=== PATIENT | female | born 1985 | race Caucasian/White ===

== ENCOUNTER 2016-05-29 13:01 | Outpatient (CLI) | payer OTHER ==
[2016-05-29 13:56] LABS: Appearance,Urine Clear (Clear); Bilirubin,Urine Negative (Negative); Glucose,Urine (UA) Negative (Negative); Ketones,Urine Negative (Negative); Leukocyte Esterase,Urine Negative (Negative); Nitrite,Urine Negative (Negative); PH, Urine 6.5 (5.0-8.0); Protein,Urine Negative (Negative); Specific Gravity,Urine 1.002 (1.001-1.035); UA Billing (MACRO vs. MICRO) CHEM; Urobilinogen,Urine <2.0 mg/dL (<2.0)
[2016-05-29 14:22] LABS: Basophils % (A) 0 %; CH 32.3; Eosinophils # (A) 0.1 k/uL (0-0.7); Eosinophils % (A) 1 %; HCT 36.5 % (34.0-46.0); HDW 2.49; HGB 11.9 gm/dL (11.4-16.0); Luc # (Auto) 0.11; Luc % (Auto) 1; Lymphocytes # (A) 1.3 k/uL (1.0-4.8); Lymphocytes % (A) 15 %; MCH 31.1 pg (25.0-35.0); MCHC 32.6 g/dL (31.0-37.0); MCV 95.4 fL (80.0-100.0); Mean Platelet Volume 7.6; Monocytes # (A) 0.3 k/uL (0-1.0); Monocytes % (A) 3 %; Neutrophils # (A) 6.9 k/uL (1.3-7.7); Neutrophils % (A) 80 %; RBC 3.83 m/uL (3.80-5.40); RDW 13.2 % (11.5-15.5); WBC 8.7 k/uL (3.8-10.6); WBC (Perox) 8.73
[2016-05-29 14:44] LABS: ALT 32 U/L (9-52); AST 49 U/L (14-36); LDH 398 U/L (313-618); Non-African American GFR(MDRD) >60 (>60 ml/min/1.73 sqM); Uric Acid 3.5 mg/dL (3.7-7.4)
== END 2016-05-29 15:20 | disposition home or self-care (01) ==
LOC: FBPOP 13:01
PROVIDERS: ATTEND Obstetrics & Gynecology
DX: O99.89 Other specified diseases and conditions complicating pregnancy, childbirth and the puerperium (principal); R03.0 Elevated blood-pressure reading, without diagnosis of hypertension; Z3A.23 23 weeks gestation of pregnancy
CPT/HCPCS: 81003; 82565; 83615; 84450; 84460; 84550; 85025; 99215

== ENCOUNTER → 2016-06-27 | Outpatient (CLI) | payer OTHER ==
[2016-06-27 09:43] LABS: CH 32.5; CHCM 34.2; HCT 38.2 % (34.0-46.0); HDW 2.63; HGB 12.8 gm/dL (11.4-16.0); MCH 32.1 pg (25.0-35.0); MCHC 33.6 g/dL (31.0-37.0); MCV 95.5 fL (80.0-100.0); Mean Platelet Volume 7.6; RDW 12.9 % (11.5-15.5); WBC 9.9 k/uL (3.8-10.6)
== END | disposition home or self-care (01) ==
LOC: LABWHC1 08:01 → EDSTATUS 09:19
PROVIDERS: ATTEND Obstetrics & Gynecology
DX: Z34.02 Encounter for supervision of normal first pregnancy, second trimester (principal); Z3A.00 Weeks of gestation of pregnancy not specified
CPT/HCPCS: 36415; 82950; 85027; 86850

== ENCOUNTER 2016-09-23 01:17 | Inpatient (IN) | payer OTHER ==
[2016-09-23] MEDS ORDERED: OXYTOCIN 10 UNIT/ML 1 ML VIAL IM PRN (01:35)
[2016-09-23] MEDS ORDERED: CARBOPROST TROMETHAMINE 250 MCG/ML 1 ML AMP IM PRN (01:35)
[2016-09-23] MEDS ORDERED: METHYLERGONOVINE 0.2 MG/ML 1 ML AMP IM PRN (01:35)
[2016-09-23] MEDS ORDERED: TERBUTALINE 1 MG/ML VIAL SQ PRN (01:35)
[2016-09-23] MEDS ORDERED: LIDOCAINE 1% (PF) 10 MG/ML (30 ML SDV) SQ PRN (01:35)
[2016-09-23] MEDS ORDERED: BUTORPHANOL 1 MG/ML 1 ML VIAL IV PRN (01:36)
[2016-09-23] MEDS: LACTATED RINGERS 1,000 ML IV SCH ×2 (02:02→08:26)
[2016-09-23] MEDS: OXYTOCIN 20 UNITS/1000 ML NS 1,000 ML IV SCH ×2 (02:16→12:41)
[2016-09-23 03:23] LABS: Basophils % (A) 0 %; CH 31.9; CHCM 35.7; Eosinophils # (A) 0.1 k/uL (0-0.7); Eosinophils % (A) 1 %; HCT 38.4 % (34.0-46.0); HGB 13.6 gm/dL (11.4-16.0); Luc # (Auto) 0.15; Luc % (Auto) 2; Lymphocytes # (A) 1.7 k/uL (1.0-4.8); Lymphocytes % (A) 17 %; MCH 31.7 pg (25.0-35.0); MCHC 35.4 g/dL (31.0-37.0); MCV 89.7 fL (80.0-100.0); Mean Platelet Volume 7.8; Monocytes # (A) 0.5 k/uL (0-1.0); Monocytes % (A) 5 %; Neutrophils # (A) 7.6 k/uL (1.3-7.7); Neutrophils % (A) 76 %; RBC 4.28 m/uL (3.80-5.40); WBC 10.1 k/uL (3.8-10.6); WBC (Perox) 10.38
--- NOTE | 2016-09-23 08:30 | P.HPOB ---
History of Present Illness H&P Date: 09/23/16 Chief Complaint: Spontaneous rupture of membranes 30-year-old presents at 39 weeks and 6 days with spontaneous rupture membranes at midnight. Her cervix is 2 cm dilated, 70% effaced, -2 station. She is yara irregularly. heart tones 140-145 with moderate variability and reactive. Review of Systems All systems: negative Constitutional: Denies chills, Denies fever Eyes: denies blurred vision, denies pain Ears, nose, mouth and throat: Denies headache, Denies sore throat Cardiovascular: Denies chest pain, Denies shortness of breath Respiratory: Denies cough Gastrointestinal: Denies abdominal pain, Denies diarrhea, Denies nausea, Denies vomiting Genitourinary: Denies dysuria, Denies hematuria Musculoskeletal: Denies myalgias Integumentary: Denies pruritus, Denies rash Neurological: Denies numbness, Denies weakness Psychiatric: Denies anxiety, Denies depression Endocrine: Denies fatigue, Denies weight change Past Medical History Past Medical History: Thyroid Disorder Additional Past Medical History / Comment(s): thyroiditis - 2015. Obstetric history: This is her first she had care with me since 10 weeks. Blood type O-, antibodies negative, rubella immune, RPR nonreactive, hepatitis B negative, GBS negative. History of Any Multi-Drug Resistant Organisms: None Reported Past Surgical History: Cholecystectomy Additional Past Surgical History / Comment(s): 2006 Past Anesthesia/Blood Transfusion Reactions: No Reported Reaction Past Psychological History: Depression Smoking Status: Never smoker Past Alcohol Use History: None Reported Past Drug Use History: None Reported - Past Family History Father Family Medical History: Diabetes Mellitus, Hypertension Sister(s) Family Medical History: Diabetes Mellitus Additional Family Medical History / Comment(s): tuberous sclerosis Medications and Allergies Home Medications Medication Instructions Recorded Confirmed Type Ykx-Plws-Zcbgi Acid 1 cap PO DAILY 05/29/16 09/23/16 History [-U Capsule] Ranitidine HCl [Zantac] 150 mg PO DAILY 09/23/16 09/23/16 History Allergies Allergy/AdvReac Type Severity Reaction Status Date / Time amoxicillin [From Augmentin] Allergy Rash/Hives Verified 09/23/16 01:23 clavulanic acid Allergy Rash/Hives Verified 09/23/16 01:23 [From Augmentin] Exam Osteopathic Statement: *. No significant issues noted on an osteopathic structural exam other than those noted in the History and Physical/Consult. - Vital Signs Vital signs: Vital Signs Temp Pulse Resp BP Pulse Ox 09/23/16 01:39 97.2 F L 94 16 131/84 98 09/23/16 01:24 97.2 F L 94 16 131/84 98 Intake and Output 09/22/16 09/23/16 09/23/16 22:59 06:59 14:59 Other: # Voids 2 Weight 113.398 kg Heart: Regular rate and rhythm Lungs: Clear to auscultation bilaterally Abdomen: Soft, nontender Extremities: Negative Homans sign Results Result Diagrams: 09/23/16 02:00 Assessment and Plan (1) Spontaneous rupture of membranes Status: Acute Plan: 1. Admit to family place 2. Pitocin augmentation 3. Anticipate normal vaginal delivery
[2016-09-23] MEDS ORDERED: HYDROCORTISONE 2.5% RECTAL CREAM 30 GM TUBE RECTAL PRN (10:22)
[2016-09-23] MEDS ORDERED: ACETAMINOPHEN TAB 325 MG TAB PO PRN (10:22)
[2016-09-23] MEDS ORDERED: diphenhydrAMINE 50 MG/ML 1 ML VIAL IVP PRN ×2 (10:22)
[2016-09-23] MEDS ORDERED: LANOLIN CREAM 5 GM TUBE TOPICAL PRN (10:22)
[2016-09-23] MEDS ORDERED: WITCH HAZEL 1 EACH MED..PAD TOPICAL PRN (10:22)
[2016-09-23] MEDS ORDERED: IBUPROFEN 600 MG TAB PO PRN (10:22)
[2016-09-23] MEDS ORDERED: ZOLPIDEM 5 MG TAB PO PRN (10:22)
[2016-09-23] MEDS ORDERED: diphenhydrAMINE 50 MG CAP PO PRN (10:22)
[2016-09-23] MEDS ORDERED: BENZOCAINE SPRAY 57GM TOPICAL PRN (10:22)
[2016-09-23] MEDS ORDERED: diphenhydrAMINE 25 MG CAP PO PRN (10:22)
[2016-09-23] MEDS ORDERED: SIMETHICONE 80 MG CHEWABLE PO PRN (10:22)
[2016-09-23] MEDS ORDERED: Acetaminophen-Codeine 300-30mg TAB PO PRN ×2 (10:22)
[2016-09-23] MEDS: SENNOSIDES-DOCUSATE SODIUM 1 EACH TAB PO SCH (21:38)
[2016-09-24] MEDS ORDERED: Rhogam IMMUNE GLOBULIN 1,500 UNIT/1 ML IM ONE (00:21)
--- NOTE | 2016-09-24 08:14 | P.PROBDLV ---
Vaginal Delivery Note - . Vaginal Delivery Note: 30-year-old presents at 39 weeks and 6 days with spontaneous rupture of membranes at midnight. Her cervix was 2-3 cm dilated, 70% effaced, -2 station. She is yara irregularly. heart tones 130-135 with moderate variability and reactive. Pitocin augmentation was started. She progressed slowly throughout the night and was completely dilated at 9:53 AM. She pushed, and delivered a viable female over midline episiotomy at 10:01 AM. Head delivered OA, anterior shoulder delivered gentle downward traction followed by posterior shoulder and rest of body. Nose and mouth bulb suctioned, cord clamped and cut, infant placed on mother's abdomen. Apgars 8, 9, weight 7 lbs. 4 oz. Placenta delivered spontaneously, intact with three-vessel cord at 10:06 AM. Vagina, cervix, perineum inspected. Bilateral sulcal tears, left labial tear and midline episiotomy were all repaired with 2-0, 3-0 Vicryl. estimated blood loss 200 mL. Mother and baby in stable condition.
[2016-09-24 08:23] VITALS: BP 114/68; PULSE 82; RESP 18; TEMP 97.9
--- NOTE | 2016-09-24 08:48 | P.DS ---
Providers Date of admission: 09/23/16 01:36 Expected date of discharge: 09/24/16 Attending physician: Chanda Stout Primary care physician: Stated None - Discharge Diagnosis(es) (1) Spontaneous rupture of membranes Current Visit: Yes Status: Resolved (2) Normal vaginal delivery Current Visit: Yes Status: Acute Hospital Course: Patient presented with spontaneous rupture membranes and underwent normal vaginal delivery. Her course was uncomplicated. She denies nausea, vomiting, chest pain, shortness of breath, chest pain, or calf pain. She'll be discharged home post day #1 in stable condition to follow-up with me in 6 weeks. Plan - Discharge Summary New Discharge Prescriptions: No Action Oel-Zojs-Atyuw Acid [-U Capsule] 1 cap PO DAILY Ranitidine HCl [Zantac] 150 mg PO DAILY Discharge Medication List Hyz-Lpew-Xsrcb Acid [-U Capsule] 1 cap PO DAILY 05/29/16 [ History] Ranitidine HCl [Zantac] 150 mg PO DAILY 09/23/16 [History] Follow up Appointment(s)/Referral(s): Chanda Stout DO [Doctor of Osteopathic Medicine] - 6 Weeks Discharge Disposition: HOME SELF-CARE
[2016-09-24] MEDS: SENNOSIDES-DOCUSATE SODIUM 1 EACH TAB PO SCH (13:38)
--- NOTE | 2016-09-25 06:41 | P.MSEPDOC ---
Presenting Problems - Arrival Data Date of Arrival on Unit: 09/23/16 Time of Arrival on Unit: 01:28 Mode of Transport: Wheelchair - Complaint OB-Reason for Admission/Chief Complaint: Possible Onset of Labor, Rule Out SROM Medical History - Information : 1 Para: 0 Term: 0 : 0 Abortions: Spontaneous or Elective: 0 Number of Living Children: 0 - Gestational Age Expected Date of Delivery: 09/24/16 Gestational Age by BANDAR (wks/days): 40 Weeks and 1 Days Review of Systems - Review of Systems Constitutional: No problems Breast: No problems ENT: No problems Cardiovascular: No problems Respiratory: No problems Gastrointestinal: No problems Genitourinary: No problems Musculoskeletal: No problems Neurological: No problems Skin: No problems Vital Signs - Temperature Temperature: 97.9 F Temperature Source: Axillary - Pulse Right Pulse Rate: 82 Pulse Assessment Method: Auscultation - Respirations Respiratory Rate: 18 Oxygen Delivery Method: Room Air - Blood Pressure Right Arm Blood Pressure: 114/68 Blood Pressure Mean: 83 Blood Pressure Source: Automatic Cuff Medical Screen Scoring (Pre) - Cervical Exam Dilation: 1-3 cm = 1 Membranes: Ruptured = 3 - Uterine Contractions Frequency: > or = 36 weeks =2 Duration: > 40 seconds = 2 Intensity: N/A - Assessment Baseline FHR: 155 Heart Rate - NICHD Category: Category I (Normal) = 0 NST: Reactive Position: N/A Station: N/A - Total Score Total Score (Pre): 8 - Level of Risk Level of Risk: Medium (6-9) Physician Notification (Pre) - Physician Notified Physician Notified Date: 09/23/16 Physician Notified Time: 01:37 Spoke With: Girish Mir Order Received: Yes (admit for labor) Disposition - Disposition OB Disposition: Admit, LDRP Suite Discharge Date: 09/24/16 Discharge Time: 13:20 I agree with the RN Medical Screening Exam: Yes Risk & Benefit of care provided described in d/c instruction: Yes Diagnosis: ENCOUNTER FOR FULL-TERM UNCOMPLICATED DELIVERY
== END 2016-09-24 13:20 | disposition home or self-care (01) | DRG 775 ==
LOC: FBPOP 01:17 → 4FBP 01:36
PROVIDERS: ADMIT Obstetrics & Gynecology; ATTEND Obstetrics & Gynecology
PROC: 10E0XZZ Delivery of Products of Conception, External Approach (ICD-10-PCS; principal; 2016-09-23)
PROC: 0HQ9XZZ Repair Perineum Skin, External Approach (ICD-10-PCS; 2016-09-23)
PROC: 0W8NXZZ Division of Female Perineum, External Approach (ICD-10-PCS; 2016-09-23)
DX: O99.344 Other mental disorders complicating childbirth (principal); F32.9 Major depressive disorder, single episode, unspecified; Z37.0 Single live birth; O70.0 First degree perineal laceration during delivery; Z3A.39 39 weeks gestation of pregnancy; Z82.49 Family history of ischemic heart disease and other diseases of the circulatory system; Z88.1 Allergy status to other antibiotic agents
CPT/HCPCS: 59025; 84112; 85025; 88307; 99213

== ENCOUNTER → 2016-12-16 | Outpatient (CLI) | payer OTHER ==
--- NOTE | 2016-12-16 08:10 | US ---
EXAMINATION TYPE: US pelvis complete transvag DATE OF EXAM: 12/16/2016 COMPARISON: NONE CLINICAL HISTORY: Z997.[address] TECHNIQUE: Transvaginal (TV) and Transabdominal (TA) endovaginal scanning performed for better evalu ation of the uterus. Date of LMP: unknown EXAM MEASUREMENTS: Uterus: 8.7 x 3.9 x 4.8 cm Endometrial Stripe: 0.4 cm Right Ovary: 3.1 x 2.8 x 2.0 cm Left Ovary: 2.8 x 2.6 x 1.5 cm 1. Uterus: Anteverted wnl 2. Endometrium: no IUD seen 3. Right Ovary: wnl 4. Left Ovary: wnl 5. Bilateral Adnexa: wnl 6. Posterior cul-de-sac: trace free fluid IMPRESSION: IUD not seen
--- NOTE | 2016-12-16 12:14 | XR ---
EXAMINATION TYPE: XR KUB DATE OF EXAM: 12/16/2016 COMPARISON: 12/16/2016 HISTORY: Possible foreign body TECHNIQUE: One view abdominal series FINDINGS: The osseous structures are intact. The bowel gas pattern is nonspecific. There is a radiopaque forei gn body overlying the right paraspinal line at the approximate level of L3-L4. Arthropathy of the hips and calcifications in the pelvis noted. IMPRESSION: 1. Findings are suggestive of a foreign body overlying the L3-L4 space on the right. A [employer] message has been communicated to Chanda Stout DO via the [employer] system on 12/16/2016 12:11 PM, Message ID [id number].
--- NOTE | 2016-12-16 12:19 | XR ---
EXAMINATION TYPE: XR pelvis AP view DATE OF EXAM: 12/16/2016 COMPARISON: NONE HISTORY: Possible foreign body The osseous structures are intact and the joint spaces are preserved. No acute fracture is seen. Vi sualized bowel gas pattern is nonspecific. There is a radial opaque density overlying the L3-L4 level on the right which is suggestive of foreig n body and possibly intrauterine device. IMPRESSION: 1. Correlate for foreign body overlying the L3-L4 level.
== END | disposition home or self-care (01) ==
LOC: RADUSWWP 07:31
PROVIDERS: ATTEND Obstetrics & Gynecology
DX: T83.32XA Displacement of intrauterine contraceptive device, initial encounter (principal)
CPT/HCPCS: 72170; 74000; 76830; 76856

== ENCOUNTER → 2016-12-17 | Outpatient (CLI) | payer OTHER ==
[2016-12-17 11:43] LABS: Basophils % (A) 1 %; CH 29.5; CHCM 33.6; Eosinophils # (A) 0.1 k/uL (0-0.7); Eosinophils % (A) 2 %; HDW 2.77; HGB 13.3 gm/dL (11.4-16.0); Luc # (Auto) 0.13; Luc % (Auto) 3; Lymphocytes # (A) 1.6 k/uL (1.0-4.8); Lymphocytes % (A) 32 %; MCH 30.1 pg (25.0-35.0); MCHC 34.1 g/dL (31.0-37.0); MCV 88.1 fL (80.0-100.0); Mean Platelet Volume 6.4; Monocytes # (A) 0.2 k/uL (0-1.0); Monocytes % (A) 4 %; Neutrophils % (A) 59 %; RBC 4.43 m/uL (3.80-5.40); RDW 12.7 % (11.5-15.5); WBC 5.1 k/uL (3.8-10.6); WBC (Perox) 5.03
== END | disposition home or self-care (01) ==
LOC: LABPAT 10:05
PROVIDERS: ATTEND Obstetrics & Gynecology
DX: Z01.812 Encounter for preprocedural laboratory examination (principal)
CPT/HCPCS: 85025

== ENCOUNTER 2016-12-23 09:01 | Day surgery (SDC) | payer OTHER ==
[2016-12-17 18:16] VITALS: BMI 34.0
--- NOTE | 2016-12-22 17:17 | P.HPOB ---
History of Present Illness H&P Date: 12/22/16 Chief Complaint: Malpositioned IUD 30-year-old presents for laparoscopic removal of IUD. Review of Systems All systems: negative Constitutional: Denies chills, Denies fever Eyes: denies blurred vision, denies pain Ears, nose, mouth and throat: Denies headache, Denies sore throat Cardiovascular: Denies chest pain, Denies shortness of breath Respiratory: Denies cough Gastrointestinal: Denies abdominal pain, Denies diarrhea, Denies nausea, Denies vomiting Genitourinary: Denies dysuria, Denies hematuria Musculoskeletal: Denies myalgias Integumentary: Denies pruritus, Denies rash Neurological: Denies numbness, Denies weakness Psychiatric: Denies anxiety, Denies depression Endocrine: Denies fatigue, Denies weight change Past Medical History Past Medical History: GERD/Reflux, Thyroid Disorder Additional Past Medical History / Comment(s): Intrauterine Device,thyroiditis - 2015 History of Any Multi-Drug Resistant Organisms: None Reported Past Surgical History: Cholecystectomy Additional Past Surgical History / Comment(s): 2006 Past Anesthesia/Blood Transfusion Reactions: Postoperative Nausea & Vomiting ( PONV) Additional Past Anesthesia/Blood Transfusion Reaction / Comment(s): no hx blood transfusion Smoking Status: Never smoker - Past Family History Father Family Medical History: Diabetes Mellitus, Hypertension Sister(s) Family Medical History: Diabetes Mellitus Additional Family Medical History / Comment(s): tuberous sclerosis,3 sisters with diabetes Medications and Allergies Home Medications Medication Instructions Recorded Confirmed Type No Known Home Medications [No 12/17/16 12/17/16 History Known Home Medications] Allergies Allergy/AdvReac Type Severity Reaction Status Date / Time amoxicillin [From Augmentin] Allergy Rash/Hives Verified 12/17/16 18:11 clavulanic acid Allergy Rash/Hives Verified 12/17/16 18:11 [From Augmentin] Exam Osteopathic Statement: *. No significant issues noted on an osteopathic structural exam other than those noted in the History and Physical/Consult. Heart: Regular rate and rhythm Lungs: Clear to auscultation bilaterally Abdomen: Soft, nontender Extremities: Negative Homans sign Assessment and Plan (1) Complication of intrauterine device (IUD) Status: Acute Plan: 1. Laparoscopic removal of IUD
[~2016-12-23 09:01] MED LIST: DEXAMETHASONE SOD PHOSPHATE 10 MG/ML 1 ML VIAL IV ONE; HYDROmorphone 1 MG/ML 1 ML SYRINGE IVP PRN; LACTATED RINGERS 1,000 ML IV SCH; MIDAZOLAM 2 MG/2 ML VIAL IV PRN; ONDANSETRON 4 MG/2 ML VIAL IVP ONE; Pre Op ABX Message 1 EACH MISC MISCELLANE ONE; SCOPOLAMINE 1.5MG/72HR PATCH TRANSDERM ONE
[2016-12-23] MEDS ORDERED: LACTATED RINGERS 1,000 ML IV ONE (09:30)
[2016-12-23] MEDS ORDERED: LIDOCAINE 1% 20 ML VIAL (10MG/ML) FOR IV START INTRADERMA ONE (09:31)
[2016-12-23] MEDS ORDERED: LIDOCAINE 1% INJ 10MG/ML (20 ML MDV) ONE (10:13)
[2016-12-23] MEDS ORDERED: SUCCINYLCHOLINE CHLORIDE VIAL 200 MG/10 ML VIAL IV ONE (10:13)
[2016-12-23] MEDS ORDERED: PROPOFOL 10 MG/ML 20 ML VIAL IV ONE (10:13)
[2016-12-23] MEDS ORDERED: MIDAZOLAM 2 MG/2 ML VIAL ONE (10:13)
[2016-12-23] MEDS ORDERED: fentaNYL (PF) 50 MCG/ML 2 ML AMP ONE (10:13)
[2016-12-23] MEDS ORDERED: KETOROLAC 30 MG/ML 1 ML VIAL ONE (10:13)
[2016-12-23] MEDS ORDERED: BUPIVACAINE (PF) 0.25% 30 ML VIAL SQ ONE ×2 (10:48)
--- NOTE | 2016-12-23 11:03 | P.OP ---
Date of Procedure: 12/23/16 Preoperative Diagnosis: 1. malpositioned IUD Postoperative Diagnosis: 1. malpositioned IUD Procedure(s) Performed: Laparoscopic removal of IUD Implants: Anesthesia: MARTHAA Surgeon: Chanda Stout Estimated Blood Loss (ml): 5 IV fluids (ml): 500 Urine output (ml): 200 Pathology: none sent Condition: stable Disposition: PACU Indications for Procedure: Operative Findings: Mirena IUD found in omentum, easily removed Description of Procedure: Patient was taken to the operating room where general anesthesia was obtained without difficulty. She was prepped and draped in normal sterile fashion in the dorsal lithotomy position, legs placed in the Darrell stirrups. Bladder drained of all urine. Deming speculum placed in the vagina and the anterior lip the cervix was grasped with single-tooth tenaculum. The uterus is sounded to 12 cm and the kroner manipulator was placed. Attention was then turned to the abdomen and gloves were changed. A 10 mm infraumbilical incision was made the scalpel and 10 mm optical trocar was placed under direct visualization. A 5 mm suprapubic Incision was made and a 5 mm optical trocar was placed under direct visualization. Survey of the pelvis revealed normal uterus tubes and ovaries. The graspers used to probe around through the omentum as the IUD is known to be somewhere in the L3-L4 region. The IUD was easily found in the omentum. It was easily freed by grasping the strings and pulled free gently. It was then removed through the 5 mm trocar. All instruments were then removed from the abdomen and vagina. The 10 mm infraumbilical incision was closed with 0 Vicryl and the fascial layer and then 4-0 Vicryl in a subcuticular fashion. The 5 mm incision was closed with 4-0 Vicryl in a subcuticular fashion. Patient tolerated procedure well, sponge and instrument counts correct 2 and she was taken to recovery room in stable condition.
[2016-12-23 14:11] VITALS: BP 125/74; PULSE 60; RESP 16; TEMP 97.6
== END 2016-12-23 12:57 | disposition home or self-care (01) ==
LOC: OR 09:01
PROVIDERS: ATTEND Obstetrics & Gynecology
DX: T85.628A Displacement of other specified internal prosthetic devices, implants and grafts, initial encounter (principal); K21.9 Gastro-esophageal reflux disease without esophagitis; Z88.0 Allergy status to penicillin
CPT/HCPCS: 81025; 49329; J2250; J0330; J1100; J2405; J2001; J3010; J1885; J2704

== ENCOUNTER → 2018-06-10 | Outpatient (CLI) | payer OTHER ==
--- NOTE | 2018-06-10 08:46 | USB ---
Reason for exam: clinical finding. History: Took hormonal contraceptives beginning at age 31. Physical Findings: Nurse did not find any significant physical abnormalities on exam. US Breast LT Left complete breast ultrasound includes all four quadrants, the retroareolar region and axilla. Finding demonstrates no cystic or solid lesion seen. These results were verbally communicated with the patient and result sheet given to the patient on 06/10/18. ASSESSMENT: Negative, BI-RAD 1 RECOMMENDATION: Clinical management of the left breast. Manage on a clinical basis with regard to pain or white nipple discharge.
== END | disposition home or self-care (01) ==
LOC: RADUSWWP 07:00
PROVIDERS: ATTEND Physician Assistant Medical
DX: N64.3 Galactorrhea not associated with childbirth (principal); N64.9 Disorder of breast, unspecified

== ENCOUNTER 2019-05-21 12:47 | Inpatient (IN) | payer OTHER ==
[2019-05-21] MEDS ORDERED: LIDOCAINE 0.5% (PF) 5 MG/ML (50 ML SDV) SQ PRN (13:25)
[2019-05-21] MEDS ORDERED: OXYTOCIN 10 UNIT/ML 1 ML VIAL IM PRN (13:25)
[2019-05-21] MEDS ORDERED: TERBUTALINE 1 MG/ML VIAL SQ PRN (13:25)
[2019-05-21] MEDS ORDERED: METHYLERGONOVINE 0.2 MG/ML 1 ML AMP IM PRN (13:25)
[2019-05-21] MEDS ORDERED: CARBOPROST TROMETHAMINE 250 MCG/ML 1 ML AMP IM PRN (13:25)
[2019-05-21] MEDS ORDERED: OXYTOCIN 30 UNITS/500 ML NS 30 UNIT in SALINE 1 500ML.BAG IV SCH (13:30)
[2019-05-21] MEDS: LACTATED RINGERS 1,000 ML IV SCH (14:00)
[2019-05-21 14:08] LABS: Basophils % (A) 0 %; Eosinophils # (A) 0.1 k/uL (0-0.7); Eosinophils % (A) 1 %; HCT 39.6 % (34.0-46.0); HGB 13.2 gm/dL (11.4-16.0); Lymphocytes # (A) 1.4 k/uL (1.0-4.8); Lymphocytes % (A) 16 %; MCH 30.2 pg (25.0-35.0); MCHC 33.4 g/dL (31.0-37.0); MCV 90.3 fL (80.0-100.0); Mean Platelet Volume 8.3; Monocytes # (A) 0.2 k/uL (0-1.0); Monocytes % (A) 3 %; Neutrophils # (A) 7.1 k/uL (1.3-7.7); Neutrophils % (A) 79 %; Platelet Count 222 k/uL (150-450); RBC 4.39 m/uL (3.80-5.40); RDW 13.4 % (11.5-15.5); WBC 9.1 k/uL (3.8-10.6)
--- NOTE | 2019-05-21 14:19 | P.HPOB ---
History of Present Illness H&P Date: 05/21/19 Chief Complaint: IUP at 40-0/7 weeks active labor This is a 33-year-old 2 para 1001 at 35-0/7 weeks that presents to labor and delivery with complaints of regular painful contractions. Patient states contractions started around 7:30 this patient denies loss of fluid vaginal bleeding or changes in movement. Patient has been receiving routine care with myself. This has a due date of 05/21/19 with good dating parameters less muscle. Equal to a negative ultrasound. has been essentially uncomplicated. On blood work she has a blood type of O-, rubella status immune, RPR nonreactive, hepatitis B surface antigen negativ e, HIV negative, she did receive her T Dap vaccination on 02/23 flu vaccine on 01/29 and group beta strep was negative on 04/26 Review of Systems Constitutional: Denies chills, Denies fatigue, Denies fever Ears, nose, mouth and throat: Denies headache Cardiovascular: Reports leg edema Gastrointestinal: Denies constipation, Denies diarrhea, Denies nausea, Denies vomiting Genitourinary: Reports Past Medical History Past Medical History: GERD/Reflux, Thyroid Disorder Additional Past Medical History / Comment(s): Intrauterine Device,thyroiditis - 2014 History of Any Multi-Drug Resistant Organisms: None Reported Past Surgical History: Cholecystectomy Additional Past Surgical History / Comment(s): 2006 Past Anesthesia/Blood Transfusion Reactions: Postoperative Nausea & Vomiting (PONV) Additional Past Anesthesia/Blood Transfusion Reaction / Comment(s): no hx blood transfusion Past Psychological History: Depression Smoking Status: Never smoker Past Alcohol Use History: None Reported Past Drug Use History: None Reported - Past Family History Father Family Medical History: Diabetes Mellitus, Hypertension Sister(s) Family Medical History: Diabetes Mellitus Additional Family Medical History / Comment(s): tuberous sclerosis,3 sisters with diabetes Medications and Allergies Home Medications Medication Instructions Recorded Confirmed Type Famotidine [Pepcid] 1 tab PO DAILY 05/21/19 05/21/19 History Pnv,Calcium 72/Iron/Folic Acid 1 tab PO DAILY 05/21/19 05/21/19 History [ Plus Tablet] Allergies Allergy/AdvReac Type Severity Reaction Status Date / Time amoxicillin [From Augmentin] Allergy Rash/Hives Verified 12/17/16 18:11 clavulanic acid Allergy Rash/Hives Verified 12/17/16 18:11 [From Augmentin] Exam Osteopathic Statement: *. No significant issues noted on an osteopathic structural exam other than those noted in the History and Physical/Consult. 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 On cervical exam she is 6/80/-2 amniotomy is performed and meconium-stained fluid was noted. Results Result Diagrams: 05/21/19 13:58 Assessment and Plan (1) Term Current Visit: Yes Status: Acute Code(s): Z34.90 - ENCNTR FOR SUPRVSN OF NORMAL , UNSP, UNSP TRIMESTER SNOMED Code(s): 08703893 (2) Active labor Current Visit: Yes Status: Acute Code(s): LNB8881 - SNOMED Code(s): 701294741 (3) Meconium in amniotic fluid Current Visit: Yes Status: Acute Code(s): P96.83 - MECONIUM STAINING SNOMED Code(s): 469305793 Plan: Patient is admitted to labor and delivery with expectant management. She declined Stadol or epidural for pain management during labor. And 3 spontaneous vaginal delivery.
[2019-05-21] MEDS ORDERED: diphenhydrAMINE 50 MG CAP PO PRN (17:08)
[2019-05-21] MEDS ORDERED: diphenhydrAMINE 50 MG/ML 1 ML VIAL IVP PRN ×2 (17:08)
[2019-05-21] MEDS ORDERED: OXYTOCIN 20 UNITS/1000 ML NS 1,000 ML IV SCH (17:08)
[2019-05-21] MEDS ORDERED: WITCH HAZEL 1 EACH MED..PAD TOPICAL PRN (17:08)
[2019-05-21] MEDS ORDERED: BENZOCAINE/MENTHOL SPRAY 1 GM/SPRAY AEROSOL TOPICAL PRN (17:08)
[2019-05-21] MEDS ORDERED: diphenhydrAMINE 25 MG CAP PO PRN (17:08)
[2019-05-21] MEDS ORDERED: HYDROCORTISONE 2.5% RECTAL CREAM 30 GM TUBE RECTAL PRN (17:08)
[2019-05-21] MEDS ORDERED: ACETAMINOPHEN TAB 325 MG TAB PO PRN (17:08)
[2019-05-21] MEDS ORDERED: ZOLPIDEM 5 MG TAB PO PRN (17:08)
[2019-05-21] MEDS ORDERED: SIMETHICONE 80 MG CHEWABLE PO PRN (17:08)
[2019-05-21] MEDS ORDERED: LANOLIN CREAM 5 GM TUBE TOPICAL PRN (17:08)
[2019-05-21] MEDS ORDERED: IBUPROFEN 600 MG TAB PO PRN (17:08)
[2019-05-21] MEDS ORDERED: HYDROcodone/APAP 5-325MG 1 EACH TAB PO PRN (17:08)
--- NOTE | 2019-05-21 17:23 | P.PROBDLV ---
Vaginal Delivery Note - . Vaginal Delivery Note: This is a 33-year-old 2 para 1001 at 40-0/7 weeks with an estimated due date of 05/21. Patient presents to labor and delivery with complaints of contractions since around 7:30 this morning. Patient denied loss of fluid or vaginal bleeding noted good movement at that time. Patient had essentially uncomplicated care with negative group beta strep. Patient was admitted to labor and delivery regular contractions were noted and the fetus was noted to have category 1 heart tones. Amniotomy was performed and meconium- stained fluid was noted. Patient progressed through labor eventually becoming complete began pushing and had a normal spontaneous vaginal delivery of a viable female at 1652 with a weight of 8 lbs. 7 oz. and Apgars of 8 and 9 at one and 5 minutes respectively. Loose nuchal cord was noted and delivered through. Spontaneous cry at was noted. After two-minute delay the umbilical cord was doubly clamped and cut and the placenta was delivered spontaneous intact with a three-vessel cord being noted. Inspection the patient's vaginal vault a midline first-degree vaginal laceration along with bilateral labial lacerations were noted these were all repaired in the usual fashion with 3-0 repeat and 4-0 chromic respectively. Patient's uterus was noted to be firm and below the umbo like is at this time. Estimated blood loss for this delivery 300 mL. Patient and tolerated delivery well and are resting comfortably.
[2019-05-22] MEDS: SENNOSIDES-DOCUSATE SODIUM 1 EACH TAB PO SCH ×3 (00:26→20:23)
[2019-05-22] MEDS: LACTATED RINGERS 1,000 ML IV SCH (00:28)
[2019-05-22 07:20] LABS: Basophils % (A) 0 %; Eosinophils # (A) 0.1 k/uL (0-0.7); Eosinophils % (A) 1 %; HCT 34.4 % (34.0-46.0); HGB 11.2 gm/dL (11.4-16.0); Lymphocytes # (A) 1.6 k/uL (1.0-4.8); Lymphocytes % (A) 16 %; MCH 29.5 pg (25.0-35.0); MCHC 32.4 g/dL (31.0-37.0); Mean Platelet Volume 8.4; Monocytes # (A) 0.5 k/uL (0-1.0); Monocytes % (A) 5 %; Neutrophils # (A) 7.7 k/uL (1.3-7.7); Neutrophils % (A) 77 %; Platelet Count 186 k/uL (150-450); RBC 3.78 m/uL (3.80-5.40); RDW 13.6 % (11.5-15.5)
--- NOTE | 2019-05-22 10:41 | P.DS ---
Providers Date of admission: 05/21/19 13:22 Expected date of discharge: 05/22/19 Attending physician: Florencia Garzon Primary care physician: Stated None - Discharge Diagnosis(es) (1) Term Current Visit: Yes Status: Acute (2) Active labor Current Visit: Yes Status: Acute (3) Meconium in amniotic fluid Current Visit: Yes Status: Acute (4) Normal vaginal delivery Current Visit: No Status: Acute Hospital Course: This pleasant 33-year-old 2 para 1001 at 40-0/7 weeks presented to labor and delivery with complaints of regular painful contractions beginning that morning. Patient was noted to be 5 cm dilated. Patient was admitted to labor and delivery and amniotomy was performed. Meconium-stained fluid was noted on amniotomy. Patient progressed through labor eventually becoming complete and had a normal spontaneous vaginal delivery of a viable female infant with Apgars of 8 and 9 at one and 5 minutes respectively. weight of 8 lbs. 7 oz. Patient did sustain bilateral labial lacerations and a first-degree midline vaginal laceration which were all repaired in the usual fashion. Patient's course has been uneventful. She is ambulating and voiding without difficulty. She states her pain is well-controlled. She is breast-feeding without difficulty. She does wish discharge home at 24 hours. Patient Condition at Discharge: Good Plan - Discharge Summary Discharge Rx Participant: Yes New Discharge Prescriptions: No Action Pnv,Calcium 72/Iron/Folic Acid [ Plus Tablet] 1 tab PO DAILY Famotidine [Pepcid] 1 tab PO DAILY Discharge Medication List Famotidine [Pepcid] 1 tab PO DAILY 05/21/19 [History] Pnv,Calcium 72/Iron/Folic Acid [ Plus Tablet] 1 tab PO DAILY 05/21/19 [History]
[2019-05-22] MEDS: PRENATAL VIT-IRON-FOLIC ACID 1 EACH CAP PO SCH (20:22)
[2019-05-22 23:54] VITALS: RESP 18
[2019-05-23] MEDS: PRENATAL VIT-IRON-FOLIC ACID 1 EACH CAP PO SCH (09:23)
[2019-05-23] MEDS: SENNOSIDES-DOCUSATE SODIUM 1 EACH TAB PO SCH ×2 (09:23→20:07)
[2019-05-23 16:30] VITALS: BP 134/84; PULSE 102; TEMP 98.4
== END 2019-05-23 23:39 | disposition home or self-care (01) | DRG 807 ==
LOC: FBPOP 12:47 → 4FBP 13:22
PROVIDERS: ADMIT Obstetrics & Gynecology Obstetrics; ATTEND Obstetrics & Gynecology Obstetrics
PROC: 0HQ9XZZ Repair Perineum Skin, External Approach (ICD-10-PCS; principal; 2019-05-21)
PROC: 10E0XZZ Delivery of Products of Conception, External Approach (ICD-10-PCS; principal; 2019-05-21)
DX: O77.0 Labor and delivery complicated by meconium in amniotic fluid (principal); Z37.0 Single live birth; K21.9 Gastro-esophageal reflux disease without esophagitis; O99.62 Diseases of the digestive system complicating childbirth; O69.81X0 Labor and delivery complicated by cord around neck, without compression, not applicable or unspecified; O70.0 First degree perineal laceration during delivery; Z3A.40 40 weeks gestation of pregnancy; Z79.899 Other long term (current) drug therapy; Z86.59 Personal history of other mental and behavioral disorders; Z90.49 Acquired absence of other specified parts of digestive tract; Z98.890 Other specified postprocedural states; Z88.0 Allergy status to penicillin; Z88.8 Allergy status to other drugs, medicaments and biological substances; Z83.3 Family history of diabetes mellitus; Z82.49 Family history of ischemic heart disease and other diseases of the circulatory system; Z84.81 Family history of carrier of genetic disease
CPT/HCPCS: 59025; 85025; 86850; 86870; 86880; 86900; 86901; 88307; 99213

== ENCOUNTER → 2020-04-19 | Outpatient (CLI) | payer OTHER ==
--- NOTE | 2020-04-19 17:35 | ECHOF ---
Referral Reason:R002 Palpitations, R42 Dizziness MEASUREMENTS -------- HEIGHT: 170.2 cm WEIGHT: 108.9 kg BP: 120/80 RVIDd: 3.0 cm (< 3.3) IVSd: 1.1 cm (0.6 - 1.1) LVIDd: 4.2 cm (3.9 - 5.3) LVPWd: 0.9 cm (0.6 - 1.1) IVSs: 1.6 cm LVIDs: 2.6 cm LVPWs: 1.6 cm LA Diam: 3.6 cm (2.7 - 3.8) Ao Diam: 3.4 cm (2.0 - 3.7) AV Cusp: 2.2 cm (1.5 - 2.6) MV EXCURSION: 19.740 mm (> 18.000) MV EF SLOPE: 114 mm/s (70 - 150) EPSS: 0.3 cm MV E Javy: 0.87 m/s MV DecT: 141 ms MV A Javy: 0.43 m/s MV E/A Ratio: 2.02 FINDINGS -------- Sinus rhythm. This was a technically adequate study. The left ventricular size is normal. Left ventricular wall thickness is normal. The right ventricle is normal in size. The left atrial size is normal. The right atrium is normal in size. Interatrial and interventricular septum intact. Trace amount of aortic regurgitation. The mitral valve is normal. The tricuspid valve appears structurally normal. Trace/mild (physiologic) pulmonic regurgitation. The aortic root size is normal. Normal inferior vena cava with normal inspiratory collapse consistent with estimated right atrial pre ssure of 5 mmHg. There is no pericardial effusion. CONCLUSIONS -------- 1. The left ventricular size is normal. 2. Left ventricular wall thickness is normal. 3. The right ventricle is normal in size. 4. The left atrial size is normal. 5. Trace amount of aortic regurgitation. 6. Trace/mild (physiologic) pulmonic regurgitation. 7. There is no pericardial effusion. TEAM FACILITATOR: Marti Mcclendon RD
--- NOTE | 2020-04-27 13:27 | HM ---
HOLTER MONITOR REPORT INDICATION: Palpitations. The patient was monitored for 24 hours. The baseline rhythm appeared to be sinus with a minimum heart rate of 52, maximum and average of 87 beats per minute. Ventricular ectopic events seen in less than 1% of the total beats count. Supraventricular ectopic events seen in less than 1% of the total beats count. The patient did not have any significant sinus bradycardia and no significant sinus pause or sinus arrest seen. The patient reported symptoms of dizziness as well as symptoms of burning sensation and the symptoms were associated with normal sinus mechanism. CONCLUSION: 1. Sinus rhythm as a baseline mechanism. 2. Rare ventricular ectopic events. 3. Rare supraventricular ectopic events. 4. No evidence of significant sinus pause exceeds 2.5 seconds seen. 5. The patient reported symptoms of dizziness and lightheadedness and symptoms of heart racing and symptoms were associated with normal sinus mechanism. MMODL / IJN: [id number] /
== END | disposition home or self-care (01) ==
LOC: RADECHMAIN 11:58
PROVIDERS: ATTEND Family Medicine
DX: I37.1 Nonrheumatic pulmonary valve insufficiency (principal); R00.2 Palpitations; R42 Dizziness and giddiness
CPT/HCPCS: 93225; 93226; 93306

== ENCOUNTER → 2023-04-16 | Outpatient (CLI) | payer OTHER ==
--- NOTE | 2023-04-17 18:06 | MM ---
Reason for Exam: Screening (asymptomatic). Baseline mammogram. Patient History: Menarche at age 11. First Full-Term at age 29. Late child-bearing (after 28). Patient has history of breast feeding. Hormonal Contraceptives, from age 31 until age 32. Last menstrual period: 04/05/2023 Risk Values: Damari 5 year model risk: 0.7%. NCI Lifetime model risk: 13.7%. Prior Study Comparison: Patient's first Mammogram. Tissue Density: There are scattered fibroglandular densities. Findings: Analyzed By CAD. Pattern appears symmetrical. No suspicious groups of microcalcifications, spiculated or lobular masses, architectural distortion or other secondary signs of malignancy are mammographically apparent. Overall Assessment: Negative, BI-RAD 1 Management: Screening Mammogram of both breasts in 1 year. A negative mammogram report should not preclude additional follow up of suspicious palpable abnormalities. Patient should continue monthly self breast exam. A clinical breast exam by your physician is recommended on an annual basis and results should be correlated with mammographic findings. Electronically signed and approved by: Ish Cuevas D.O. Radiologis
== END | disposition home or self-care (01) ==
LOC: RADMAMWWP 06:58
PROVIDERS: ATTEND Family Medicine
DX: Z12.31 Encounter for screening mammogram for malignant neoplasm of breast (principal)
CPT/HCPCS: 77063; 77067

== ENCOUNTER → 2023-06-01 | Outpatient (CLI) | payer OTHER ==
[2023-06-01 10:59] LABS: Basophils # (A) 0.02 X 10*3/uL (0.00-0.10); Basophils % (A) 0.3 %; Eosinophils # (A) 0.03 X 10*3/uL (0.04-0.35); Eosinophils % (A) 0.4 %; HCT 38.6 % (37.2-46.3); HGB 12.5 g/dL (12.0-15.0); Lymphocytes # (A) 2.07 X 10*3/uL (0.90-5.00); Lymphocytes % (A) 29.1 %; MCH 26.3 pg (27.0-32.0); MCHC 32.4 g/dL (32.0-37.0); MCV 81.3 FL (80.0-97.0); Monocytes # (A) 0.41 X 10*3/uL (0.20-1.00); Monocytes % (A) 5.8 %; NRBC Per 100 WBC 0 X 10*3/uL (0.00-0.01); Neutrophils # (A) 4.58 X 10*3/uL (1.80-7.70); Neutrophils % (A) 64.3 %; Platelet Count 292 X 10*3/uL (140-440); RBC 4.75 X 10*6/uL (4.10-5.20); RDW 14.6 % (11.5-14.5); WBC 7.12 X 10*3/uL (4.50-10.00)
[2023-06-01 11:19] LABS: ALT 26 U/L (8-44); AST 21 U/L (13-35); Albumin 4.4 g/dL (3.8-4.9); Albumin/Globulin Ratio 1.47 Ratio (1.60-3.17); Alkaline Phosphatase 109 U/L (41-126); BUN/Creat Ratio 13.75 Ratio (12.00-20.00); Calcium 9.5 mg/dL (8.7-10.3); Carbon Dioxide 24.6 mmol/L (21.6-31.8); Chloride 100 mmol/L (96-109); Chol/HDL Ratio 2.99 Ratio; Glucose 109 mg/dL (70-110); LDL Cholesterol,Calculated 59.7 mg/dL (0.0-131.0); Potassium 4.5 mmol/L (3.5-5.5); Sodium 137 mmol/L (135-145); T4, Free (Free Thyroxine) 1.13 ng/dL (0.80-1.80); Total Bilirubin 0.4 mg/dL (0.3-1.2); Total Protein 7.4 g/dL (6.2-8.2)
== END | disposition home or self-care (01) ==
LOC: LABWHC1 07:04
PROVIDERS: ATTEND Nurse Practitioner Family
DX: Z00.00 Encounter for general adult medical examination without abnormal findings (principal); Z86.39 Personal history of other endocrine, nutritional and metabolic disease
CPT/HCPCS: 36415; 80053; 80061; 84439; 84443; 84481; 85025

== ENCOUNTER → 2024-08-18 | Outpatient (CLI) | payer OTHER ==
--- NOTE | 2024-08-19 07:52 | MM ---
Reason for Exam: Screening (asymptomatic). Last mammogram was performed 1 year(s) and 4 month(s) ago. Patient History: Menarche at age 11. First Full-Term at age 29. Late child-bearing (after 28). Premenopausal. Patient has history of breast feeding. Hormonal Contraceptives, from age 31 until age 32. Risk Values: Damari 5 year model risk: 0.8%. NCI Lifetime model risk: 13.6%. Prior Study Comparison: 04/16/2023 Bilateral MG 3D screening mammo w/cad, [facility]. Tissue Density: There are scattered areas of fibroglandular density. Findings: Analyzed By CAD. Right breast: There is no suspicious group of microcalcifications or new suspicious mass. Left breast: There is no suspicious group of microcalcifications or new suspicious mass. Overall Assessment: Negative, BI-RAD 1 Management: Screening Mammogram of both breasts in [address] [facility] will attempt to contact patient to return for supplemental views and ultrasound if indicated. Patient should continue monthly self-breast exams. A clinical breast exam by your physician is recommended on an annual basis. This exam should not preclude additional follow-up of suspicious palpable abnormalities. Note on Damari scores and lifetime risk: 1. A Damari score greater than 3% is considered moderate risk. If this is the case, consider specialist referral to assess eligibility for a risk reducing agent. 2. If overall lifetime risk for the development of breast cancer is 20% or higher, the patient may qualify for future screening with alternating mammogram and breast MRI. [facility], , 08/19/2024 7:49 AM. Electronically signed and approved by: Camilo Sen DO
== END | disposition home or self-care (01) ==
LOC: RADMAMWWP 16:31
PROVIDERS: ATTEND Family Medicine
DX: Z12.31 Encounter for screening mammogram for malignant neoplasm of breast (principal); R92.323 Mammographic fibroglandular density, bilateral breasts; Z92.0 Personal history of contraception
CPT/HCPCS: 77063; 77067